=== PATIENT | female | born 1965 | race Caucasian/White ===

== ENCOUNTER 2017-01-24 18:58 | Emergency (ER) | payer OTHER ==
[~2017-01-24] VITALS: Ht 152.4 cm; Wt 63.6 kg
[2017-01-24 19:03] VITALS: Ht 152.4 cm; Wt 63.6 kg
[2017-01-25] MEDS ORDERED: ONDANSETRON 4 MG INJ IV STA (00:34)
[2017-01-25] MEDS ORDERED: morphine 4 MG/ML VIAL IV STA (00:34)
[2017-01-25] MEDS ORDERED: SOD CHLORIDE 0.9% 500 ML IV STA (00:34)
[2017-01-25 01:27] LABS: ADD SCAN DIFF NO
[2017-01-25 01:28] LABS: BASOPHIL # 0.1 10^3/ul (0.0-0.1); BASOPHILS % 0.9 % (0.0-2.0); EOSINOPHILS # 0.4 10^3/ul (0.0-0.5); EOSINOPHILS % 4.7 % (0.0-7.0); HEMATOCRIT 42.5 % (37.0-47.0); HEMOGLOBIN 13.8 g/dl (12.0-16.0); LYMPHOCYTES # 3.7 10^3/ul (0.8-2.9); LYMPHOCYTES % 40.4 % (15.0-51.0); MEAN CORPUSCULAR HEMOGLOBIN 29.4 pg (29.0-33.0); MEAN CORPUSCULAR HGB CONC 32.5 g/dl (32.0-37.0); MEAN CORPUSCULAR VOLUME 90.4 fl (82.0-101.0); MEAN PLATELET VOLUME 11.2 fl (7.4-10.4); MONOCYTE # 0.7 10^3/ul (0.3-0.9); MONOCYTES % 7.4 % (0.0-11.0); NEUTROPHIL # 4.2 10^3/ul (1.6-7.5); NEUTROPHILS % 46.2 % (39.0-77.0); PLATELET COUNT 216 10^3/UL (140-415); WHITE BLOOD COUNT 9.1 10^3/ul (4.8-10.8)
[2017-01-25 01:52] LABS: CHLORIDE 104 mmol/L (97-110); INR 1.02; PROTIME 13.4 Sec (12.2-14.2); SODIUM 145 mmol/L (135-144)
[2017-01-25 01:53] LABS: PARTIAL THROMBOPLASTIN TIME 28.1 Sec (25.0-35.0)
[2017-01-25 01:54] LABS: CREATININE 0.65 mg/dl (0.44-1.00)
[2017-01-25 01:55] LABS: ANION GAP 20 (8-16); BLOOD UREA NITROGEN 13 mg/dl (7-20); CALCIUM 9.5 mg/dl (8.4-10.2); CARBON DIOXIDE 25 mmol/L (21-31); GLUCOSE 131 mg/dl (70-220)
[2017-01-25 02:31] LABS: TROPONIN-I < 0.012 ng/ml (0.00-0.12)
[2017-01-25] MEDS ORDERED: LORAZEPAM 2 MG INJ IV ONE (03:00)
--- NOTE | 2017-01-25 03:07 | RADRPT ---
PROCEDURE: Chest. CLINICAL INDICATION: Chest pain. TECHNIQUE: Single frontal view of the chest was obtained. COMPARISON: None. FINDINGS: The cardiac silhouette is within normal limits. The aortic arch is unremarkable. There is no focal consolidation, vascular congestion or pleural effusion. There is no pneumothorax. IMPRESSION: No evidence for active cardiopulmonary disease. .Jayy Olguin MD, MD Date Time Electronically viewed and signed by .Jayy Olguin MD, on 01/25/2017 03:07 .T/
--- NOTE | 2017-01-25 03:10 | RADRPT ---
PROCEDURE: CT Brain without contrast. CLINICAL INDICATION: Headache. TECHNIQUE: Serial axial computed tomographic images of the brain was performed on a CT scanner fro m the skull base through the vertex without contrast. Sagittal and coronal reconstruction images wer e produced. Exam CTDlvol = 44 mGy and DLP = 810 mGy-cm. One of the following 3 dose reduction tech niques were used: Automated exposure control; adjustment of the mA and/or kV according to patient si ze; or use of iterative reconstruction technique. COMPARISON: None available FINDINGS: The ventricles and sulci are normal in size and configuration. There is no midline shift. There ar e no focal parenchymal abnormalities. There is no acute stroke. No acute intracranial hemorrhage o r abnormal extra-axial fluid collection. No fracture identified. Visualized paranasal sinuses are clear. IMPRESSION: 1. No acute intracranial abnormality. RPTAT: HMVK .Justice Oseguera MD, Date Time Electronically viewed and signed by .Justice Oseguera MD, on 01/25/2017 03:09 .K/
--- NOTE | 2017-01-25 03:44 | ERD ---
ER Documentation Chief Complaint Date/Time DATE: 01/25/17 TIME: 03:42 Chief Complaint ONEAL X1 WEEK. STATES WHOLE LEFT SIDE OF BODY FEELS NUMB. HX HTN HPI This is a 50-year-old female headache for 1 week. She says she has noticed some tearing in one eye. She also has some pain behind the same left eye. She says it feels like a band on the part of her head. She says it been under a lot of stress lately and has not been sleeping well. Denies any fevers or chills. Denies any nausea vomiting. Denies any other current complaints. ROS All systems reviewed and are negative except as per history of present illness. Allergies Allergies: Coded Allergies: No Known Allergy (Unverified , 01/24/17) PMhx/Soc History of Surgery: No Anesthesia Reaction: No Hx Neurological Disorder: No Hx Respiratory Disorders: No Hx Cardiac Disorders: No Hx Psychiatric Problems: No Hx Miscellaneous Medical Probl: Yes (DM) Hx Alcohol Use: No Hx Substance Use: No Hx Tobacco Use: No Smoking Status: Never smoker Physical Exam Vitals Vital Signs Date Time Temp Pulse Resp B/P Pulse Ox O2 Delivery O2 Flow Rate FiO2 01/25/17 02:54 65 16 109/75 100 Room Air 01/24/17 19:03 97.1 92 20 158/70 96 Physical Exam Const: [] Head: Atraumatic Eyes: Normal Conjunctiva ENT: Normal External Ears, Nose and Mouth. Neck: Full range of motion..~ No meningismus. Resp: Clear to auscultation bilaterally Cardio: Regular rate and rhythm, no murmurs Abd: Soft, non tender, non distended. Normal bowel sounds Skin: No petechiae or rashes Back: No midline or flank tenderness Ext: No cyanosis, or edema Neur: Awake and alert Psych: Normal Mood and Affect Result Diagram: 01/25/17 0100 01/25/17 0100 Results 24 hrs Laboratory Tests Test 01/25/17 01:00 White Blood Count 9.110^3/ul Red Blood Count 4.7010^6/ul Hemoglobin 13.8g/dl Hematocrit 42.5% Mean Corpuscular Volume 90.4fl Mean Corpuscular Hemoglobin 29.4pg Mean Corpuscular Hemoglobin Concent 32.5g/dl Red Cell Distribution Width 13.0% Platelet Count 66620^3/UL Mean Platelet Volume 11.2fl Neutrophils % 46.2% Lymphocytes % 40.4% Monocytes % 7.4% Eosinophils % 4.7% Basophils % 0.9% Nucleated Red Blood Cells % 0.0/100WBC Neutrophils # 4.210^3/ul Lymphocytes # 3.710^3/ul Monocytes # 0.710^3/ul Eosinophils # 0.410^3/ul Basophils # 0.110^3/ul Nucleated Red Blood Cells # 0.010^3/ul Prothrombin Time 13.4Sec Prothrombin Time Ratio 1.0 INR International Normalized Ratio 1.02 Activated Partial Thromboplast Time 28.1Sec Sodium Level 145mmol/L Potassium Level 4.0mmol/L Chloride Level 104mmol/L Carbon Dioxide Level 25mmol/L Anion Gap 20 Blood Urea Nitrogen 13mg/dl Creatinine 0.65mg/dl Glucose Level 131mg/dl Calcium Level 9.5mg/dl Troponin I < 0.012ng/ml Current Medications Medications (Trade) Dose Ordered Sig/Leann Route PRN Reason Start Time Stop Time Status Last Admin Dose Admin Sodium Chloride (NS) 500 ml @ 500 mls/hr Q1H STAT IV 01/25/17 00:34 01/25/17 01:33 DC 01/25/17 01:13 Ondansetron HCl (Zofran Inj) 4 mg ONCE STAT IV 01/25/17 00:34 01/25/17 00:36 DC 01/25/17 01:13 Morphine Sulfate (morphine) 4 mg ONCE STAT IV 01/25/17 00:34 01/25/17 00:36 DC 01/25/17 01:13 Lorazepam (Ativan) 1 mg ONCE ONCE IV 01/25/17 03:00 01/25/17 03:01 DC 01/25/17 02:44 Procedures/MDM EKG: Rate/Rhythm: Normal Sinus Rhythm QRS, ST, T-waves: No changes consistent w/ acute ischemia Impression: No evidence of ischemia or arrhythmia Chest X-ray 1V Interpreted by me: Soft Tissue: No acute abnormalities Bones: No acute abnormalities Mediastinum/Cardiac Silhouette/Lungs: No acute abnormalities CT of the head as well as negative Medical decision-making: Patient's neurologic symptoms have stabilized while they have been evaluated in the department and are appropriate for outpatient work up. No e/o meningitis, intracranial bleed, seizure, stroke. Symptoms are consistent with tension headache. Patient be discharged home and told to follow -up with primary care physician. Return for worsening symptoms Departure Diagnosis: Primary Impression: Headache Headache type: tension-type Headache chronicity pattern: acute headache Intractability: not intractable Qualified Code: G44.209 - Acute non intractable tension-type headache Condition: Stable VEE BOB January 25, 2017 03:44
[2017-01-25] MEDS ORDERED: LORA-441 PO (03:45)
[2017-01-25 03:56] VITALS: BP 100/59; PULSE 75; RESP 16; TEMP 98.2
== END 2017-01-25 04:01 | disposition home or self-care (01) ==
LOC: E/R 18:58
DX: G44.209 Tension-type headache, unspecified, not intractable (principal); E11.9 Type 2 diabetes mellitus without complications; I10 Essential (primary) hypertension; R07.9 Chest pain, unspecified
CPT/HCPCS: 36415; 70450; 71010; 80048; 84484; 85025; 85610; 85730; 93005; 96374; 96375; J2060; J2270; J2405; J7040; Z7502

== ENCOUNTER 2018-05-05 08:13 | Day surgery (SDC) | END 2018-05-05 10:50 | disposition home or self-care (01) ==

== ENCOUNTER 2018-09-10 07:48 | Inpatient (IN) | payer OTHER ==
[~2018-09-10] VITALS: Ht 160 cm; Wt 67.7 kg
[2018-09-10] VITALS (7 sets, daily range): BP systolic 121–156; BP diastolic 71–74; PULSE 58–83; RESP 16–18; Ht 160 cm; Wt 67.7 kg
[~2018-09-10 07:48] MED LIST: ATOR40TA68 PO; LORA-441 PO; METF-849 PO; PIOG45TA9 PO
[2018-09-10] MEDS ORDERED: ONDANSETRON 4 MG INJ IV PRN (11:30)
[2018-09-10] MEDS ORDERED: ACETAMINOPHEN 325 MG TAB PO PRN (11:30)
[2018-09-10] MEDS ORDERED: HYDROCODONE/APAP (5/325) TAB PO PRN (11:30)
[2018-09-10] MEDS ORDERED: NACL 0.9% 3 ML SYG IV SCH (11:30)
--- NOTE | 2018-09-10 11:40 | HP ---
Date/Time of Note Date/Time of Note DATE: 09/10/18 TIME: 11:40 Assessment/Plan VTE Prophylaxis Pharmacological prophylaxis: other Assessment/Plan Hospital Course Objective Physical exam General: Patient is laying in bed and answers questions appropriately Mentation: Patient is alert and oriented 4, Head: Normocephalic atraumatic Eyes: EOMI, pupils reactive to light Neck: Supple, nontender, midline Respiratory: Clear to auscultation bilaterally Cardiovascular: regular rate, no obvious murmurs Gastrointestinal: non-tender to palpation, bowel sounds heard. Neurological: Moves all extremities spontaneously, however left leg is mildly weaker than the right, left upper extremity is also mildly weaker than the the right however very slight, reported sensation difference on the left side of the face, Skin: No new skin lesions Assessment and plan Left-sided weakness and numbness with slurred speech and left facial numbness -CVA rule out -CT and CT done at outside facility is negative for acute issues -MRI and MRA pending -Echo pending -Neurology consulted -Aspirin and Plavix recommended per tele-neurologist at outside facility, loaded less than 12 hours ago so will continue aspirin Plavix in the a.m. tomorrow, patient not chronically on aspirin at home -Statin -Lipid panel pending Migraine -Treat as needed Diabetes mellitus -Recent diagnosis -A1c pending -Insulin sliding scale for now Dyslipidemia -Lipid panel pending -Continue atorvastatin, CVA dose Disposition -CVA rule out HPI/ROS Admit Date/Time Admit Date/Time Sep 10, 2018 at 09:45 Hx of Present Illness Patient is a female with a past medical history significant for diabetes mellitus and dyslipidemia who presents to [facility] as a transfer from [facility] for stroke workup. Patient states that approximately 2 days ago she began to have sudden onset left upper extremity and left lower extremity weakness and numbness accompanied with slurred speech as well as left facial droop and numbness of her face. Patient currently states that most of the numbness and weakness has resolved from the upper extremity however the left lower extremity is still weak. Patient still states that her left face is numb and she has a left-sided headache that is fairly severe. Patient states that her slurred speech has improved. Patient currently denies chest pain, shortness of breath, dizziness, abdominal pain, leg pain PMH/Family/Social Past Medical History Medications Current Medications IV Flush (NS 3 ml) 3 ml PER PROTOCOL IV ; Start 09/10/18 at 11:30 Ondansetron HCl (Zofran Inj) 4 mg Q6H PRN IV NAUSEA AND/OR VOMITING; Start 09/10/18 at 11:30 Aspirin (Aspirin) 81 mg DAILY PO ; Start 09/11/18 at 09:00 Clopidogrel Bisulfate (plaVIX) 75 mg DAILY PO ; Start 09/11/18 at 09:00 Acetaminophen (Tylenol Tab) 650 mg Q6H PRN PO PAIN LEVEL 1-3 OR FEVER; Start 09/10/18 at 11:30 Acetaminophen/ Hydrocodone Bitart ([place] (5/325)) 1 tab Q6H PRN PO PAIN LEVEL 4-6; Start 09/10/18 at 11:30 Atorvastatin Calcium (Lipitor) 80 mg HS PO ; Start 09/10/18 at 21:00; Status UNV Coded Allergies: No Known Allergy (Unverified , 01/24/17) Exam/Review of Systems Vital Signs Vitals Vital Signs Date Temp Pulse Resp B/P (MAP) Pulse Ox O2 O2 Flow FiO2 Time Delivery Rate 09/10/18 97.9 58 16 149/71 94 11:29 (97) JAMEL NAVARRO Sep 10, 2018 11:40
[2018-09-10] MEDS: INSULIN ASPART [NOVOLOG] 3 ML PEN SC SCH ×3 (11:50→20:24)
[2018-09-10] MEDS ORDERED: DEXTROSE 50% 50 ML SYRINGE IV PRN ×2 (12:00)
[2018-09-10] MEDS ORDERED: GLUCOSE GEL 15 GRAM TUBE BUCCAL PRN (12:00)
[2018-09-10] MEDS ORDERED: GLUCAGON 1 MG INJ IM PRN (12:00)
[2018-09-10] MEDS ORDERED: GLUCOSE GEL 15 GRAM TUBE PO PRN ×2 (12:00)
[2018-09-10] MEDS ORDERED: ATORVASTATIN 80 MG TAB PO SCH (21:00)
[2018-09-11] VITALS (9 sets, daily range): BP systolic 118–141; BP diastolic 61–73; PULSE 67–79; RESP 18
[2018-09-11] MEDS ORDERED: ACCU-CHEK XX SCH (02:00)
[2018-09-11] MEDS: INSULIN ASPART [NOVOLOG] 3 ML PEN SC SCH ×2 (07:55→12:24)
[2018-09-11] MEDS ORDERED: ASPIRIN 81 MG TAB PO SCH (09:00)
[2018-09-11] MEDS ORDERED: CLOPIDOGREL 75 MG TAB PO SCH (09:00)
--- NOTE | 2018-09-11 12:18 | CONS ---
Assessment/Plan Assessment/Plan Hospital Course 52 yo F with multiple comorbidities who p/w headache, L hemiparesis, L hemisensory loss, vision and speech changes....for which neurology is consulted. Most clinically consistent with complicated migraine. Stroke is unlikely. MRI is unremarkable MRA H/N is unremarkable. P: Ok to defer additional neuroimaging for now Cont medical management per primary NSAIDs PRN migraine Will follow clinically, to recommend neurologic studies, as necessary Result Diagram: 09/11/18 0549 09/11/18 0549 Results 24hrs Laboratory Tests Test 09/10/18 17:34 09/10/18 20:17 09/11/18 05:49 09/11/18 07:50 Bedside Glucose 114 129 130 White Blood Count 8.0 # Red Blood Count 4.61 Hemoglobin 13.8 Hematocrit 41.1 Mean Corpuscular Volume 89.2 Mean Corpuscular 29.9 Hemoglobin Mean Corpuscular 33.6 Hemoglobin Concent Red Cell Distribution 13.0 Width Platelet Count 236 Mean Platelet Volume 10.6 H Immature Granulocytes % 0.400 Neutrophils % 54.5 Lymphocytes % 34.8 Monocytes % 7.0 Eosinophils % 2.7 Basophils % 0.6 Nucleated Red Blood 0.0 Cells % Immature Granulocytes # 0.030 Neutrophils # 4.4 Lymphocytes # 2.8 Monocytes # 0.6 Eosinophils # 0.2 Basophils # 0.1 Nucleated Red Blood 0.0 Cells # Sodium Level 145 H Potassium Level 4.1 Chloride Level 105 Carbon Dioxide Level 27 Anion Gap 13 Blood Urea Nitrogen 16 Creatinine 0.59 Est Glomerular Filtrat > 60 Rate mL/min Glucose Level 129 Hemoglobin A1c 7.0 H Calcium Level 9.8 Magnesium Level 2.3 Total Bilirubin 0.3 Direct Bilirubin 0.00 Indirect Bilirubin 0.3 Aspartate Amino 29 Transf (AST/SGOT) Alanine 26 Aminotransferase (ALT/SG PT) Alkaline Phosphatase 78 Total Protein 7.6 Albumin 4.3 Globulin 3.30 H Albumin/Globulin Ratio 1.30 Thyroid Stimulating 0.976 Hormone (TSH) Test 09/11/18 11:53 Bedside Glucose 166 Consultation Date/Type/Reason Admit Date/Time Sep 10, 2018 at 09:45 Type of Consult Neurology Reason for Consultation L hemiparesis, hemisensory loss, slurred speech Requesting Provider: JAMEL NAVARRO Date/Time of Note DATE: 09/11/18 TIME: 12:18 Hx of Present Illness This is a 52 yo F with hx of HTN, DM and other comorbidities who presented to the ED with c/o L sided weakness and numbness, L facial droop, and slurred speech. History was obtained from pt , family, and chart review. Per the son, he states that the pt had "a massive headache" on Tuesday night, after which the sx started. The pt stated that with the headache, she had some initial visual changes such as "seeing bubbles/blurry vision." She stated that as the headache got worse, she began to have the L sided weakness and numbness and that when it became really bad, she had the slurred speech and facial droop... prompting her to come to the ED. The pt has c/o mild headache at this time and states that most of the sx have gone away. She denies any weakness, numbness, tingling, vision or speech changes, lethargy, confusion, nausea or vomiting, photophobia or phonophobia. It is elsewhere noted: Hx of Present Illness Patient is a female with a past medical history significant for diabetes mellitus and dyslipidemia who presents to [facility] as a transfer from [facility] for stroke workup. Patient states that approximately 2 days ago she began to have sudden onset left upper extremity and left lower extremity weakness and numbness accompanied with slurred speech as well as left facial droop and numbness of her face. Patient currently states that most of the numbness and weakness has resolved from the upper extremity however the left lower extremity is still weak. Patient still states that her left face is numb and she has a left-sided headache that is fairly severe. Liane holley states that her slurred speech has improved. Patient currently denies chest pain, shortness of breath, dizziness, abdominal pain, leg pain Exam/Review of Systems Vital Signs Vitals Vital Signs Date Temp Pulse Resp B/P (MAP) Pulse Ox O2 O2 Flow FiO2 Time Delivery Rate 09/11/18 79 08:23 09/11/18 98.0 18 128/73 98 07:32 (91) 09/10/18 Room Air 15:36 Intake and Output 09/10/18 09/10/18 09/11/18 1515:00 23:00 07:00 IntakeIntake Total 240 ml 1250 ml 750 ml BalanceBalance 240 ml 1250 ml 750 ml Exam PE: Gen Appearance: No Apparent Distress HEENT: Normocephalic Cardiovascular: Regular rate Lungs: Clear bilaterally Abdomen: Soft Extremities: Dry NE: The patient was alert and oriented.. Language was normal. Fund of knowledge was normal. Pupils were equal and reactive to light. There was no afferent pupillary defect. Visual hadley were normal. Funduscopic examination was limited. Extra-ocular movements were full. Ptosis was absent. There was no nystagmus. Facial sensation was normal. Face was symmetric with normal strength. Hearing was intact. Palate movements were normal. Neck strength was normal. There was normal tongue bulk and speed of movement. Tone was normal. Muscle bulk was normal. I did not see fasciculations. Arms and legs were mildly weak and symmetric. Sensation to light touch was diminished on L face and L arm. Vibration sensation was normal. Temperature and pinprick sensation was normal. Rapid alternating movements were normal. There was no dysmetria. There was no intention tremor. Gait was deferred due to bedrest. Arm and leg reflexes were 2+ and symmetric. Crabtree's sign was absent. Plantar responses were flexor. Medications Medications Current Medications IV Flush (NS 3 ml) 3 ml PER PROTOCOL IV ; Start 09/10/18 at 11:30 Ondansetron HCl (Zofran Inj) 4 mg Q6H PRN IV NAUSEA AND/OR VOMITING; Start 09/10/18 at 11:30 Aspirin (Aspirin) 81 mg DAILY PO Last administered on 09/11/18at 09:01; Admin Dose 81 MG; Start 09/11/18 at 09:00 Clopidogrel Bisulfate (plaVIX) 75 mg DAILY PO Last administered on 09/11/18at 09:01; Admin Dose 75 MG; Start 09/11/18 at 09:00 Acetaminophen (Tylenol Tab) 650 mg Q6H PRN PO PAIN LEVEL 1-3 OR FEVER; Start 09/10/18 at 11:30 Acetaminophen/ Hydrocodone Bitart ([place] (5/325)) 1 tab Q6H PRN PO PAIN LEVEL 4-6; Start 09/10/18 at 11:30 Atorvastatin Calcium (Lipitor) 80 mg HS PO Last administered on 09/10/18at 20:16; Admin Dose 80 MG; Start 09/10/18 at 21:00 Diagnostic Test (Pha) (Accu-Chek) XX ; Start 09/11/18 at 02:00 Insulin Aspart (Novolog Insulin Pen) NOVOLOG *MILD* ALGORITHM WITH MEALS BEDTIME SC ; Start 09/10/18 at 11:50 Miscellaneous Information 1 ea NOTE XX ; Start 09/10/18 at 12:00 Glucose (Glutose) 15 gm Q15M PRN PO DECREASED GLUCOSE; Start 09/10/18 at 12:00 Glucose (Glutose) 22.5 gm Q15M PRN PO DECREASED GLUCOSE; Start 09/10/18 at 12:00 Dextrose (D50w Syringe) 25 ml Q15M PRN IV DECREASED GLUCOSE; Start 09/10/18 at 12:00 Dextrose (D50w Syringe) 50 ml Q15M PRN IV DECREASED GLUCOSE; Start 09/10/18 at 12:00 Glucagon (Glucagen) 1 mg Q15M PRN IM DECREASED GLUCOSE; Start 09/10/18 at 12:00 Glucose (Glutose) 15 gm Q15M PRN BUCCAL DECREASED GLUCOSE; Start 09/10/18 at 12:00 Past Medical History reviewed Medications Current Medications IV Flush (NS 3 ml) 3 ml PER PROTOCOL IV ; Start 09/10/18 at 11:30 Ondansetron HCl (Zofran Inj) 4 mg Q6H PRN IV NAUSEA AND/OR VOMITING; Start 09/10/18 at 11:30 Aspirin (Aspirin) 81 mg DAILY PO Last administered on 09/11/18at 09:01; Admin Dose 81 MG; Start 09/11/18 at 09:00 Clopidogrel Bisulfate (plaVIX) 75 mg DAILY PO Last administered on 09/11/18at 09:01; Admin Dose 75 MG; Start 09/11/18 at 09:00 Acetaminophen (Tylenol Tab) 650 mg Q6H PRN PO PAIN LEVEL 1-3 OR FEVER; Start 09/10/18 at 11:30 Acetaminophen/ Hydrocodone Bitart ([place] (5/325)) 1 tab Q6H PRN PO PAIN LEVEL 4-6; Start 09/10/18 at 11:30 Atorvastatin Calcium (Lipitor) 80 mg HS PO Last administered on 09/10/18at 20:16; Admin Dose 80 MG; Start 09/10/18 at 21:00 Diagnostic Test (Pha) (Accu-Chek) 1 ea 02 XX ; Start 09/11/18 at 02:00 Insulin Aspart (Novolog Insulin Pen) NOVOLOG *MILD* ALGORITHM WITH MEALS BEDTIME SC ; Start 09/10/18 at 11:50 Miscellaneous Information 1 ea NOTE XX ; Start 09/10/18 at 12:00 Glucose (Glutose) 15 gm Q15M PRN PO DECREASED GLUCOSE; Start 09/10/18 at 12:00 Glucose (Glutose) 22.5 gm Q15M PRN PO DECREASED GLUCOSE; Start 09/10/18 at 12:00 Dextrose (D50w Syringe) 25 ml Q15M PRN IV DECREASED GLUCOSE; Start 09/10/18 at 12:00 Dextrose (D50w Syringe) 50 ml Q15M PRN IV DECREASED GLUCOSE; Start 09/10/18 at 12:00 Glucagon (Glucagen) 1 mg Q15M PRN IM DECREASED GLUCOSE; Start 09/10/18 at 12:00 Glucose (Glutose) 15 gm Q15M PRN BUCCAL DECREASED GLUCOSE; Start 09/10/18 at 12:00 Allergies: Coded Allergies: No Known Allergy (Unverified , 01/24/17) Past Surgical History reviewed Social History reviewed Smoking Status: Never smoker REYES KAUFMAN NP Sep 11, 2018 12:18
[2018-09-11] MEDS ORDERED: ASPI-831 PO (14:01)
--- NOTE | 2018-09-11 14:09 | DS ---
Date/Time of Note Date/Time of Note DATE: 09/11/18 TIME: 14:03 Discharge Summary Admission/Discharge Info Admit Date/Time Sep 10, 2018 at 09:45 Discharge Date/Time Discharge Diagnosis 1. TIA, symptoms resolved, ASA/atorvastatin 2. DM, on metformin and actos, follow up with PCP 3. Dyslipidemia, on statin Patient Condition: Stable Hospital Course Patient is a female with a past medical history significant for diabetes mellitus and dyslipidemia who presents to [facility] as a transfer from [facility] for stroke workup. Patient states that approximately 2 days ago she began to have sudden onset left upper extremity and left lower extremity weakness and numbness accompanied with slurred speech as we ll as left facial droop and numbness of her face. Patient currently states that most of the numbness and weakness has resolved from the upper extremity however the left lower extremity is still weak. Patient still states that her left face is numb and she has a left-sided headache that is fairly severe. Patient states that her slurred speech has improved. Patient currently denies chest pain, shortness of breath, dizziness, abdominal pain, leg pain. MRI brain, MRA brain and neck all unremarkable. Symptoms resolved. The symptoms are considered TIA related. She will be continue on aspirin and statin and follow up with PCP/neurology outpatient. She had some headache on left parietal area, but no headache before. Headache resolved. I am not sure if she has migraine headache. HbA1c is 7. She will follow up with PCP for DM medication adjustment. Home Meds Active Scripts Aspirin (Aspirin) 81 Mg Chew, 81 MG PO DAILY for 30 Days, TAB Prov:MANDI RICH MD 09/11/18 Lorazepam* (Ativan*) 0.5 Mg Tablet, 0.5 MG PO Q8, #10 TAB Prov:VEE BOB 01/25/17 Reported Medications Metformin* (Glucophage*) 500 Mg Tab, 500 MG PO WITH LUNCH DINNER, #60 TAB 05/05/18 Atorvastatin* (Atorvastatin*) 40 Mg Tablet, 40 MG PO QHS, #30 TAB 05/05/18 Pioglitazone Hcl* (Actos*) 45 Mg Tablet, 45 MG PO DAILY, #30 TAB 05/05/18 Follow-up Plan PCP and neurology Primary Care Provider [facility] Pending Labs Laboratory Tests Test 09/10/18 17:34 09/10/18 20:17 09/11/18 05:49 09/11/18 07:50 Bedside 114 129 130 Glucose mg/dL (70-220) mg/dL (70-220) mg/dL (70-220) White Blood 8.0 Count 10^3/ul (4.8-1 0.8) Red Blood 4.61 Count 10^6/ul (4.20- 5.40) Hemoglobin 13.8 g/dl (12.0-16. 0) Hematocrit 41.1 % (37.0-47.0) Mean 89.2 Corpuscular fl (82.0-101.0 Volume ) Mean 29.9 Corpuscular pg (29.0-33.0) Hemoglobin Mean 33.6 Corpuscular g/dl (32.0-37. Hemoglobin Conc 0) ent Red Cell 13.0 Distribution % (11.5-14.5) Width Platelet Count 236 10^3/UL (140-4 15) Mean Platelet 10.6 Volume fl (7.4-10.4) Immature 0.400 Granulocytes % % (0.001-0.429 ) Neutrophils % 54.5 % (39.0-77.0) Lymphocytes % 34.8 % (15.0-51.0) Monocytes % 7.0 % (0.0-11.0) Eosinophils % 2.7 % (0.0-7.0) Basophils % 0.6 % (0.0-2.0) Nucleated Red 0.0 Blood Cells % /100WBC (0.0-0 .0) Immature 0.030 Granulocytes # 10^3/ul (0.0-0 .031) Neutrophils # 4.4 10^3/ul (1.6-7 .5) Lymphocytes # 2.8 10^3/ul (0.8-2 .9) Monocytes # 0.6 10^3/ul (0.3-0 .9) Eosinophils # 0.2 10^3/ul (0.0-0 .5) Basophils # 0.1 10^3/ul (0.0-0 .1) Nucleated Red 0.0 Blood Cells # 10^3/ul (0.0-0 .0) Sodium Level 145 mmol/L (135-14 4) Potassium 4.1 Level mmol/L (3.5-5. 1) Chloride Level 105 mmol/L (97-110 ) Carbon Dioxide 27 Level mmol/L (21-31) Anion Gap 13 (5-13) Blood Urea 16 Nitrogen mg/dl (7-20) Creatinine 0.59 mg/dl (0.44-1. 00) Est Glomerular > 60 Filtrat mL/min (>60) Rate mL/min Glucose Level 129 mg/dl (70-220) Hemoglobin A1c 7.0 % (0-5.9) Calcium Level 9.8 mg/dl (8.4-10. 2) Magnesium 2.3 Level mg/dl (1.7-2.5 ) Total 0.3 Bilirubin mg/dl (0.2-1.3 ) Direct 0.00 Bilirubin mg/dl (0.00-0. 20) Indirect 0.3 Bilirubin mg/dl (0-1.1) Aspartate Amino 29 Transf (AST/SGO IU/L (15-46) T) Alanine 26 Aminotransferas IU/L (13-69) e (ALT/SGPT) Alkaline 78 Phosphatase IU/L (42-121) Total Protein 7.6 g/dl (6.1-8.1) Albumin 4.3 g/dl (3.3-4.9) Globulin 3.30 g/dl (1.3-3.2) Albumin/Globuli 1.30 n Ratio Thyroid 0.976 Stimulating MIU/L (0.465-4 Hormone (TSH) .680) Test 09/11/18 11:53 Bedside 166 Glucose mg/dL (70-220) MANDI RICH MD Sep 11, 2018 14:09
--- NOTE | 2018-09-11 17:47 | RADRPT ---
Echocardiogram Report Patient Name: BRIANA FISHER Gender: Female Date: 1965 Study Date: 11-Sep-2018 [place] Measurer: Cole Quinonez [facility] Location: [id number] Ref. Physician: JAMEL NAVARRO Quality: Adequate Procedures: Transthoracic echocardiogram with complete 2D, M-Mode, and doppler examination. Indications: Cerebrovascular Accident. 2D/M Mode Doppler Measurement Value Normal Ranges Measurement Value Normal Ranges LVIDd 2D 4.4 3.5 - 5.6 cm AV Peak Diogo 1.6 m/sec LVIDs 2D 2.8 2.1 - 4.1 cm AV Peak PG 10.0 mmHg LVPWd 2D 0.8 0.6 - 1.1 cm LVOT Peak Diogo 0.9 m/sec IVSd 2D 0.9 0.6 - 1.1 cm LVOT Peak PG 3.0 mmHg AoR Diam 2D 2.9 2.0 - 3.7 cm MV E Peak Diogo 0.6 m/sec LA/Ao 2D 1 0 - 1 MV A Peak Diogo 0.7 m/sec LA Dimen 2D 3.1 2.3 - 4.0 cm MV E/A 0.9 MV Decel Time 317 msec Lat E` Diogo 0.1 m/sec Lateral E/E` 6.5 Med E` Diogo 0.1 m/sec MV E/A 0.9 TR Peak Diogo 2.2 m/sec TR Peak PG 19.0 mmHg RVSP 29.0 mmHg RA Pressure 10.0 Findings Left Ventricle: Normal left ventricular systolic function. Normal left ventricular cavity size. Normal left ventricular wall thickness. Sigmoid septum. Ejection fraction is visually estimated at 65 %. Tissue Doppler/Mitral Doppler indices are consistent with impaired relaxation (Stage I diastolic dysfunction). Right Ventricle: Normal right ventricular size. Normal right ventricular systolic function. Left Atrium: The left atrium is normal in size. Right Atrium: The right atrium is normal in size. Atrial Septum: Bubble study was performed with and with out valsalva indicating no evidence of intra atrial shunt. Mitral Valve: Normal appearance and function of the mitral valve with trace physiologic regurgitation. Aortic Valve: Normal appearance of the aortic valve. No significant aortic stenosis or insufficiency. Tricuspid Valve: Normal appearance of the tricuspid valve. Estimated peak PA systolic pressure 29 mmHg. There is trace tricuspid regurgitation. Pulmonic Valve: Pulmonic valve not well visualized. Pericardium: Trivial pericardial effusion. Aorta: Normal aortic root. IVC: Normal size and normal respiratory collapse consistent with normal right atrial pressure. Conclusions Normal left ventricular systolic function. Normal left ventricular cavity size. Normal left ventricular wall thickness. Sigmoid septum. Ejection fraction is visually estimated at 65 %. Tissue Doppler/Mitral Doppler indices are consistent with impaired relaxation (Stage I diastolic dysfunction). The left atrium is normal in size. Normal appearance and function of the mitral valve with trace physiologic regurgitation. Normal appearance of the aortic valve. No significant aortic stenosis or insufficiency. Normal appearance of the tricuspid valve. Estimated peak PA systolic pressure 29 mmHg. There is trace tricuspid regurgitation. Electronically Signed By: Micky Randhawa 11-Sep-2018 17:46:27 -0800 Patient Name: BRIANA FISHER Study Date: 11-Sep-2018 [id number]
== END 2018-09-11 17:05 | disposition home or self-care (01) | DRG 69 ==
LOC: TEL 09:45
PROVIDERS: ADMIT Internal Medicine; ATTEND Internal Medicine
DX: G45.9 Transient cerebral ischemic attack, unspecified (principal); E11.9 Type 2 diabetes mellitus without complications; E78.5 Hyperlipidemia, unspecified
CPT/HCPCS: 70544; 70549; 70551; 80053; 80061; 82962; 83036; 83735; 84443; 85025; 85049; 85610; 85670; 85730; 90686; 93306; J1815